=== PATIENT | male | born 1965 | race Caucasian/White ===

== ENCOUNTER 2021-08-27 10:27 | Emergency (ER) | payer BC, SELFPAY ==
[2021-08-27 10:37] VITALS: BP 174/101; PULSE 88; RESP 18; TEMP 37.2; O2SAT 99
--- NOTE | 2021-08-27 10:58 | ED.SKABFB ---
HPI - Skin/Abscess/Foreign Bdy General Stated complaint: lump on lower back and buttocks. Source: patient Mode of arrival: ambulatory Limitations: no limitations History of Present Illness HPI narrative: 55-year-old male presents to express care with complaints of lump to his left lower back and between his buttocks for the past week. Patient has been applying [id number]. Ointment with little relief. Patient denies fever, bodies, chills, nausea, vomiting or diarrhea. MD complaint: abscess/boil Onset (ago): week(s) (1) Pain Consistency: constant Relieving factors: none Related Data Home Medications Medication Instructions Recorded Confirmed herbal drugs [Water Pill] tablet PO 08/27/21 metformin 500 mg PO BID 08/27/21 08/27/21 Allergies Allergy/AdvReac Type Severity Reaction Status Date / Time No Known Allergies Allergy Verified 08/27/21 10:56 Review of Systems Constitutional: Constitutional: Denies chills, Denies fatigue, Denies fever(s) and Denies weakness Cardiovascular: Cardiovascular: Denies chest pain Respiratory: Respiratory: Denies cough and Denies dyspnea Gastrointestinal: Gastrointestinal: Denies abdominal pain, Denies diarrhea, Denies nausea and Denies vomiting Integumentary/Breasts: Comments: lump to left lower back and buttocks Neurologic: Denies dizziness PMFSH Comments At time of signature, I agree with nursing past medical, surgical, social and family history. There is no relevant family history pertinent to the presenting complaint. Exam Const: General: healthy appearing and no acute distress Orientation/consciousness: patient oriented x3 Neck: Neck: normal visual inspection Resp: Effort & Inspection: normal respiratory effort, not labored and not tachypneic Auscultation: clear to auscultation bilaterally Cardio: Rate: regular rate Rhythm: regular rhythm Skin: General skin exam: normal color Other: 2 cm area of redness noted to left low back with a 0.5 cm dicolored center noted, No necrotic tissue noted. There is no fluctuance or induration noted. Area is hard to touch. There is no purulent drainage, bleeding or bruising noted. Neuro: General: patient oriented x3, moves all extremities and no meningeal signs Psych: Affect: normal affect Course Course Level of Care: Express Care Visit Vital Signs Vital signs: Vital Signs Temperature 37.2 C 08/27/21 10:37 Pulse Rate 88 08/27/21 10:37 Respiratory Rate 18 08/27/21 10:37 Blood Pressure 174/101 H 08/27/21 10:37 Pulse Oximetry 99 08/27/21 10:37 Temperature 37.2 C 08/27/21 10:37 Pulse Rate 88 08/27/21 10:37 Respiratory Rate 18 08/27/21 10:37 Blood Pressure 174/101 H 08/27/21 10:37 Pulse Oximetry 99 08/27/21 10:37 MDM - Skin/Abscess/Foreign Bdy MDM Narrative Medical decision making narrative: Patient agreed to take medication as prescribed. Patient agrees to apply ointment to area. Patient agrees to apply warm compress to area. Patient agrees to proceed the emergency room symptoms worsen Differential Diagnosis Differential diagnosis: Likely viral exanthem, urticaria and insect bites Critical Care Time Critical Care Time Critical Care Time: No Discharge Plan Discharge Clinical Impression: Abscess Patient Disposition: Home, Self-Care Condition: Stable Instructions: Antibiotic Form, Abscess (ED) Additional Instructions: Apply warm compress to your Take medication as prescribed Apply ointment as prescribed [id number] Motrin Tylenol as needed Follow-up with primary care provider if symptoms not improved Follow-up with your primary care provider to have blood pressure evaluated Proceed to the emergency room if symptoms worsen Patient Language: [place] Prescriptions: New doxycycline hyclate 100 mg capsule 100 mg PO Q12H 10 Days Qty: 20 RF: 0 mupirocin 2 % ointment 1 applic topical TID 7 Days Qty: 15 RF: 0 No Action metformin 500 mg
[2021-08-27 11:05] VITALS: BP 150/90
== END 2021-08-27 11:05 | disposition home or self-care (01) ==
PROVIDERS: Emergency Provider Nurse Practitioner Family; PCP Family Medicine
DX: L02.212 Cutaneous abscess of back [any part, except buttock and flank] (principal); E11.9 Type 2 diabetes mellitus without complications; I50.9 Heart failure, unspecified; Z79.84 Long term (current) use of oral hypoglycemic drugs
CPT/HCPCS: 99213; G0463